=== PATIENT | male | born 1985 | race Caucasian/White ===

== ENCOUNTER 2021-09-30 10:21 | Emergency (ER) | payer MEDICAID ==
[~2021-09-30] VITALS: Ht 167.6 cm; Wt 86.3 kg
[~2021-09-30 10:21] MED LIST: CEPH-571 PO; ERYT-124 PO; HYDR-4383 PO
[2021-09-30 11:19] VITALS: BP 107/79
[2021-09-30] MEDS ORDERED: ALBU6.7H9 INH (13:46)
[2021-09-30] MEDS ORDERED: BUDE180A INH (13:46)
== END 2021-09-30 14:10 | disposition home or self-care (01) ==
LOC: ER 10:22
DX: U07.1 COVID-19 (principal); F17.200 Nicotine dependence, unspecified, uncomplicated; F15.90 Other stimulant use, unspecified, uncomplicated; Z88.1 Allergy status to other antibiotic agents; Z79.2 Long term (current) use of antibiotics; Z79.899 Other long term (current) drug therapy
CPT/HCPCS: 87635; 99283; C9803